=== PATIENT | female | born 1980 | race Caucasian/White ===

== ENCOUNTER → 2016-11-08 | Outpatient (CLI) | payer OTHER ==
--- OUTSIDE RECORDS SUMMARY | 2016-11-08 09:49 | XMS REPORT | Continuity of Care Document ---
Author Author [facility] Organization [facility] Address Unknown Phone Unavailable Care Team Providers Care French Translator Name Role Phone Sandra Fuad PCP [phone] Source Comments Some departments are not documenting in the electronic medical record. If you do not see the information that you expected, contact Release of Information in the Health Information Management department at [phone] for further assistance in locating additional records.[facility] Active Allergies and Adverse Reactions Allergen Noted Date Severity Reactions Comments Pcn 01/13/2011 UNKNOWN Current Medications Prescription Sig. Disp. Refills Start End Date Status Date SERTRALINE HCL Take 50 mg by mouth. Active (SERTRALINE PO) albuterol (VENTOLIN HFA, Inhale 2 Puffs by mouth Active PROAIR HFA) 90 every 6 hours as needed. mcg/actuation inhaler tiZANidine (ZANAFLEX) 2 Take 1-2 Tabs by mouth 120 Tab 1 10/12/19 Active mg tablet every 12 hours as needed. [address] Take 1 Tab by mouth twice 60 Tab 1 10/12/19 Active (VOLTAREN) 75 mg tablet daily. 14 Active Problems Problem Noted Date Lumbago 10/12/2013 Social History Tobacco Use Types Packs/Day Years Used Date Never Smoker Alcohol Use Drinks/Week oz/Week Comments Yes Last Filed Vital Signs Vital Sign Reading Time Taken Blood Pressure 109/69 10/12/2013 10:37 AM [employer] Pulse 69 10/12/2013 10:37 AM [employer] Temperature 36.6 C (97.8 F) 10/12/2013 10:37 AM [employer] Respiratory Rate 16 10/12/2013 10:37 AM [employer] Height 1.727 m (5' 8") 10/12/2013 10:37 AM [employer] Weight 64.864 kg (143 lb) 10/12/2013 10:37 AM [employer] Body Mass Index 21.75 10/12/2013 10:37 AM [employer] Oxygen Saturation - - Plan of Care Health Maintenance Due Date Last Done Comments Physical (Comprehensive) 02/19/1987 Exam Pertussis Vaccine 02/19/1991 Tetanus Vaccine 02/19/1997 Cervical Cancer Screening 02/19/2001 Influenza Vaccine 05/02/2016 Results from Last 3 Months Not on file
--- NOTE | 2016-11-08 19:19 | Diagnostic Imaging Report ---
INDICATION: Digital mammogram bilateral screening. This study was compared to the prior exams of 07/25/14, 11/23/12 and 11/05/10. At this time, there are no current complaints. The current study was also evaluated with a Computer Aided Detection (CAD) system. FINDINGS: The fibroglandular tissue in both breasts is dense. This does limit the sensitivity of this exam. Overall, there does not appear to have been any significant change when compared to the prior study. No primary or secondary sign of malignancy is noted. IMPRESSION: There is no radiographic evidence for malignancy. ACR BI-RADS Category 1: Negative. Result letter will be mailed to the patient. Note: At least 10% of breast cancer is not imaged by mammography. Dictated by: Dictated on workstation # [id number]
== END ==
LOC: RAD 09:47
PROVIDERS: ATTEND Nurse Practitioner
DX: Z12.31 Encounter for screening mammogram for malignant neoplasm of breast (principal)
CPT/HCPCS: 77067

== ENCOUNTER → 2018-08-04 | Outpatient (CLI) | payer OTHER ==
--- NOTE | 2018-08-04 20:06 | Diagnostic Imaging Report ---
INDICATION: Routine screening. Comparison is made with prior mammograms from 11/08/2016 and 11/23/2012. 2-D and 3-D bilateral screening mammography was performed with computer-aided detection (CAD) system. FINDINGS: Both breasts remain heterogeneously dense, limiting the sensitivity of mammography. There is a density noted in the axillary tail region of the left breast which appears more prominent than prior mammograms. Additional views are recommended. No correlate on the CC view is seen. No suspicious calcifications are identified. IMPRESSION: Left breast density. Additional views are recommended for further evaluation. ACR BI-RADS Category 0: Incomplete. (Needs additional imaging evaluation). Result letter will be mailed to the patient. Note: At least 10% of breast cancer is not imaged by mammography. Dictated by: Dictated on workstation # [id number]
== END ==
LOC: RAD 12:52
PROVIDERS: ATTEND Nurse Practitioner
DX: Z12.31 Encounter for screening mammogram for malignant neoplasm of breast (principal); R92.8 Other abnormal and inconclusive findings on diagnostic imaging of breast
CPT/HCPCS: 77067

== ENCOUNTER → 2018-08-07 | Outpatient (CLI) | payer OTHER ==
--- NOTE | 2018-08-07 19:49 | Diagnostic Imaging Report ---
INDICATION: Left breast density. Patient presents for additional views. COMPARISON: Correlation is made with prior mammogram from 08/04/2018. TECHNIQUE: Unilateral left 2D and 3D diagnostic mammography was performed including spot compression ML, exaggerated CC, and routine 90 degree lateral views. The current study was also evaluated with a Computer Aided Detection (CAD) system. FINDINGS: Additional views fail to demonstrate a discrete mass. There is normal dispersion of fibroglandular elements. Area in question most likely represented superimposed tissue. No suspicious calcifications are seen. IMPRESSION: Additional views fail to demonstrate a discrete mass. Patient may return to routine annual screening mammography. ACR BI-RADS Category 1: Negative. Result letter will be mailed to the patient. Note: At least 10% of breast cancer is not imaged by mammography. Dictated on workstation # [id number]
== END ==
LOC: RAD 12:56
PROVIDERS: ATTEND Nurse Practitioner
DX: N63.20 Unspecified lump in the left breast, unspecified quadrant (principal); R92.8 Other abnormal and inconclusive findings on diagnostic imaging of breast

== ENCOUNTER → 2019-05-13 | Outpatient (CLI) | payer OTHER ==
--- NOTE | 2019-05-13 11:16 | Diagnostic Imaging Report ---
PROCEDURE: MRI lumbar spine. TECHNIQUE: Multiplanar, multisequence MRI of the lumbar spine was performed without contrast. INDICATION: Chronic low back pain. COMPARISON: No prior studies are available for comparison. FINDINGS: Curvature and alignment of the lumbar spine is normal. Vertebral body heights are maintained. Marrow signal intensity is unremarkable. No geographic marrow lesion or acute compression fracture is seen. There is disc desiccation and mild disc space narrowing at L3-4, L4-5 and L5-S1 levels compatible with degenerative disc disease. The conus is unremarkable at the L1 level. T12-L1: Central canal and neural foramina are widely patent. L1-2: The central canal and neural foramina are widely patent. L2-3: Central canal and neural foramina are widely patent. L3-4: There is broad-based disc bulging indenting the ventral thecal sac. There is also ligamentous thickening. Central canal remains widely patent. Neural foramina are patent. L4-5: There is wide-based midline disc bulging indenting the ventral thecal sac. Central canal remains patent. There is ligamentous thickening. There is mild neural foraminal narrowing bilaterally. Bilateral lateral recess narrowing is present. L5-S1: Broad-based midline disc bulging indents the ventral thecal sac. Central canal remains widely patent. Mild bilateral neural foraminal narrowing and bilateral lateral recess narrowing is seen. Paraspinous tissues are unremarkable. IMPRESSION: Lower lumbar spondylosis with mild lateral recess and neural foraminal narrowing described level by level above. No acute compression fracture is detected. Dictated by: Dictated on workstation # [id number]
== END ==
LOC: RAD 10:13
PROVIDERS: ATTEND Physician Assistant
DX: M47.816 Spondylosis without myelopathy or radiculopathy, lumbar region (principal); M48.061 Spinal stenosis, lumbar region without neurogenic claudication; M51.27 Other intervertebral disc displacement, lumbosacral region; M43.8X6 Other specified deforming dorsopathies, lumbar region
CPT/HCPCS: 72148

== ENCOUNTER → 2020-06-22 | Outpatient (CLI) | payer OTHER ==
--- NOTE | 2020-06-22 11:13 | Diagnostic Imaging Report ---
INDICATION: Routine screening. Comparison is made with prior mammogram 08/04/2018 and 11/08/2016. 2-D and 3-D bilateral screening mammography was performed with CAD. Both breasts are heterogeneously dense, limiting the sensitivity of mammography. The parenchymal pattern is stable. No dominant mass or malignant appearing microcalcifications are seen. Axillae are unremarkable. IMPRESSION: BI-RADS Category 1 No mammographic features suspicious for malignancy are identified. ACR BI-RADS Category 1: Negative. Result letter will be mailed to the patient. Note: At least 10% of breast cancer is not imaged by mammography. Dictated by: Dictated on workstation # [id number]
== END ==
LOC: RAD 07:30
PROVIDERS: ATTEND Nurse Practitioner Women's Health
DX: Z12.31 Encounter for screening mammogram for malignant neoplasm of breast (principal)
CPT/HCPCS: 77063; 77067

== ENCOUNTER → 2021-06-25 | Outpatient (CLI) | payer OTHER ==
--- NOTE | 2021-06-25 14:09 | Diagnostic Imaging Report ---
PROCEDURE: MRI lumbar spine. TECHNIQUE: Multiplanar, multisequence MRI of the lumbar spine was performed without contrast. INDICATION: Chronic low back pain. COMPARISON: MRI lumbar spine without contrast 05/13/2019. FINDINGS: There are 5 lumbar-type vertebral bodies. Normal alignment. Vertebral body heights preserved. Normal bone marrow signal. No abnormal signal in the conus which terminates at L1. Normal morphology of the cauda equina. The visualized paravertebral soft tissues are unremarkable. L1-L2: Normal. L2-L3: Normal. L3-L4: Small central disc protrusion. No spinal canal, lateral recess or neural foraminal narrowing. L4-L5: Central disc protrusion results in mild bilateral lateral recess narrowing. Disc space height loss also contributes to moderate right and mild left neural foraminal narrowing. Mild spinal canal narrowing. L5-S1: Central disc protrusion results in mild bilateral lateral recess narrowing. Moderate left and mild right neural foraminal narrowing. No spinal canal narrowing. IMPRESSION: 1. Spondylotic changes are similar to the prior exam and result in no high-grade spinal canal stenosis or neural foraminal narrowing. 2. Scattered mild and moderate neural foraminal narrowing is greatest on the right at L4-L5 and on the left at L5-S1. 3. No acute osseous findings. Dictated by: Dictated on workstation # [id number]
== END ==
LOC: RAD 12:12
PROVIDERS: ATTEND Physician Assistant
DX: M48.07 Spinal stenosis, lumbosacral region (principal); M51.36 Other intervertebral disc degeneration, lumbar region
CPT/HCPCS: 72148